=== PATIENT | male | born 1965 | race African-American/Black ===

== ENCOUNTER 2017-01-23 00:05 | Emergency (ER) | payer MEDICAID, OTHER ==
[~2017-01-23] VITALS: Ht 182.9 cm; Wt 100.0 kg
[~2017-01-23 00:05] MED LIST: ALBUTEROL; FLUT1DIS IH; PSEU120T56 PO; TRIA15CR61 TP
[2017-01-23 03:02] VITALS: BP 117/65
== END 2017-01-23 03:05 | disposition home or self-care (01) ==
LOC: ER 00:05
DX: S00.83XA Contusion of other part of head, initial encounter (principal); S00.33XA Contusion of nose, initial encounter; K08.419 Partial loss of teeth due to trauma, unspecified class; S00.512A Abrasion of oral cavity, initial encounter; Y35.93XA Legal intervention, means unspecified, suspect injured, initial encounter; Y93.89 Activity, other specified; Y92.89 Other specified places as the place of occurrence of the external cause
CPT/HCPCS: 99283